=== PATIENT | male | born 1960 ===

== ENCOUNTER 2017-07-08 03:25 | Emergency (ER) | payer OTHER ==
[2017-07-08 05:50] VITALS: BP 135/86; PULSE 58; RESP 18; TEMP 97.5; O2SAT 97
== END 2017-07-08 05:50 | disposition home or self-care (01) ==
LOC: C.ER 03:25
DX: S16.1XXA Strain of muscle, fascia and tendon at neck level, initial encounter (principal); V49.40XA Driver injured in collision with unspecified motor vehicles in traffic accident, initial encounter